=== PATIENT | female | born 1950 | race Caucasian/White ===

== ENCOUNTER → 2017-10-28 | Outpatient (CLI) | payer OTHER ==
[~2017-10-28] MED LIST: ALPR.25 PO; Alph-E-Mixed400 UNIT; CLOP75 PO; EZET10 PO; Prilosec Otc20 MG; Prinivil10 MG PO; TRIHYD5075 PO
[2017-10-28 16:31] LABS: BASOPHILS ABSOLUTE AUTO 0.03 K/mm3 (0.00-0.23); BASOPHILS PERCENT AUTO 0 % (0-2); EOSINOPHILS ABSOLUTE AUTO 0.19 K/mm3 (0.00-0.68); EOSINOPHILS PERCENT AUTO 2 % (0-6); Hematocrit 37.3 % (33.0-51.0); Hemoglobin 12.6 g/dL (11.5-16.0); IMMATURE GRAN ABSOLUTE AUTO 0.04 K/mm3 (0.00-0.10); IMMATURE GRAN PERCENT AUTO 1 % (0-1); LYMPHOCYTES ABSOLUTE AUTO 2.32 K/mm3 (0.84-5.20); LYMPHOCYTES PERCENT AUTO 30 % (21-46); MONOCYTES ABSOLUTE AUTO 0.66 K/mm3 (0.16-1.47); MONOCYTES PERCENT AUTO 8 % (4-13); Mean Corpuscular HGB 29.2 pg (26.0-34.0); Mean Corpuscular HGB Conc 33.8 g/dL (31.5-36.5); Mean Corpuscular Volume 86 fL (80-100); Mean Platelet Volume 10.5 fL (9.1-12.4); NEUTROPHILS ABSOLUTE AUTO 4.59 K/mm3 (1.96-9.15); NEUTROPHILS PERCENT AUTO 59 % (41-73); Platelet Count 312 K/mm3 (150-400); RDW Coefficient Variation 11.4 % (11.7-14.2); RDW Standard Deviation 36.1 fL (35.1-46.3); Red Blood Cell Count 4.32 M/mm3 (3.80-5.20); White Blood Cell Count 7.83 K/mm3 (4.00-11.30)
[2017-10-28 16:51] LABS: Albumin, Blood 3.8 g/dL (3.4-5.0); Albumin/Globulin Ratio 1.2 (0.8-1.8); Bilirubin, Total 0.4 mg/dL (0.1-1.0); Bun/Creatinine Ratio 12.8 (12.0-20.0); Calcium, Blood 9.2 mg/dL (8.5-10.1); Creatinine, Blood 1.33 mg/dL (0.40-1.00); Globulin, Blood 3.3 g/dL (2.2-4.0); Potassium, Blood 3.9 mmol/L (3.5-5.5); Total Protein, Blood 7.1 g/dL (6.4-8.2)
== END ==
LOC: LAB 16:22 → LAB SHORT 16:22
PROVIDERS: Physician Assistant
DX: L30.9 Dermatitis, unspecified (principal); R21 Rash and other nonspecific skin eruption
CPT/HCPCS: 80053; 85025

== ENCOUNTER 2019-03-13 17:40 | Inpatient (IN) | payer OTHER ==
[~2019-03-13] VITALS: Ht 162.6 cm; Wt 94.8 kg
[2019-03-13 18:39] LABS: Source, Urine Urostomy Bag
[2019-03-13 18:49] LABS: Appearance, Urine Clear (Clear); Bilirubin, Urine Neg (Neg); Blood, Urine Neg (Neg); Color, Urine Yellow (P-Yellow); Glucose Qualitative, Urine Neg (Neg); Ketones, Urine Neg (Neg); Leukocyte Esterase, Urine 1+ (Neg); Nitrite, Urine Neg (Neg); Protein, Urine Neg (Neg); Specific Gravity, Urine 1.005 (1.003-1.022); Urobilinogen, Urine NORM (Normal)
[2019-03-13 18:51] LABS: BASOPHILS ABSOLUTE AUTO 0.03 K/mm3 (0.00-0.23); BASOPHILS PERCENT AUTO 0 % (0-2); EOSINOPHILS ABSOLUTE AUTO 0.02 K/mm3 (0.00-0.68); EOSINOPHILS PERCENT AUTO 0 % (0-6); Hematocrit 37.4 % (33.0-51.0); Hemoglobin 12.6 g/dL (11.5-16.0); IMMATURE GRAN ABSOLUTE AUTO 0.12 K/mm3 (0.00-0.10); IMMATURE GRAN PERCENT AUTO 1 % (0-1); LYMPHOCYTES ABSOLUTE AUTO 2.14 K/mm3 (0.84-5.20); LYMPHOCYTES PERCENT AUTO 12 % (21-46); MONOCYTES ABSOLUTE AUTO 1.42 K/mm3 (0.16-1.47); MONOCYTES PERCENT AUTO 8 % (4-13); Mean Corpuscular HGB 29.1 pg (26.0-34.0); Mean Corpuscular HGB Conc 33.7 g/dL (31.5-36.5); Mean Corpuscular Volume 86 fL (80-100); Mean Platelet Volume 10.7 fL (9.1-12.4); NEUTROPHILS PERCENT AUTO 79 % (41-73); Platelet Count 306 K/mm3 (150-400); RDW Coefficient Variation 11.8 % (11.7-14.2); RDW Standard Deviation 37.4 fL (35.1-46.3); Red Blood Cell Count 4.33 M/mm3 (3.80-5.20); White Blood Cell Count 17.93 K/mm3 (4.00-11.30)
[2019-03-13 19:01] LABS: Bacteria Few /hpf; Red Blood Cells, Urine 0-2 /hpf (0-2); Squamous Epithelial Cells Few /hpf (Few)
[2019-03-13 19:03] LABS: Albumin, Blood 3.7 g/dL (3.4-5.0); Bilirubin, Total 0.8 mg/dL (0.1-1.0); Bun/Creatinine Ratio 14.4 (12.0-20.0); Calcium, Blood 9.5 mg/dL (8.5-10.1); Creatinine, Blood 1.11 mg/dL (0.40-1.00); Globulin, Blood 3.6 g/dL (2.2-4.0); Potassium, Blood 3.9 mmol/L (3.5-5.5); Total Protein, Blood 7.3 g/dL (6.4-8.2)
[2019-03-13] MEDS ORDERED: ALPR.5 PO (19:49)
[2019-03-13] MEDS ORDERED: Dyazide 37.5-21 EACH PO (19:50)
[2019-03-13] MEDS ORDERED: HYDHCL25 PO (19:51)
[2019-03-13] MEDS ORDERED: ALLO100 PO (21:43)
[2019-03-13] MEDS ORDERED: THERA-D2000 UNIT PO (23:16)
[2019-03-13] MEDS ORDERED: CQ10 PO (23:17)
[2019-03-14 04:58] LABS: BASOPHILS ABSOLUTE AUTO 0.03 K/mm3 (0.00-0.23); BASOPHILS PERCENT AUTO 0 % (0-2); EOSINOPHILS ABSOLUTE AUTO 0.04 K/mm3 (0.00-0.68); EOSINOPHILS PERCENT AUTO 0 % (0-6); Hematocrit 32.2 % (33.0-51.0); Hemoglobin 10.8 g/dL (11.5-16.0); IMMATURE GRAN ABSOLUTE AUTO 0.08 K/mm3 (0.00-0.10); IMMATURE GRAN PERCENT AUTO 1 % (0-1); LYMPHOCYTES ABSOLUTE AUTO 2.09 K/mm3 (0.84-5.20); LYMPHOCYTES PERCENT AUTO 14 % (21-46); MONOCYTES ABSOLUTE AUTO 1.25 K/mm3 (0.16-1.47); MONOCYTES PERCENT AUTO 8 % (4-13); Mean Corpuscular HGB 29.3 pg (26.0-34.0); Mean Corpuscular HGB Conc 33.5 g/dL (31.5-36.5); Mean Corpuscular Volume 88 fL (80-100); Mean Platelet Volume 10.6 fL (9.1-12.4); NEUTROPHILS ABSOLUTE AUTO 11.61 K/mm3 (1.96-9.15); NEUTROPHILS PERCENT AUTO 77 % (41-73); Platelet Count 255 K/mm3 (150-400); RDW Coefficient Variation 11.8 % (11.7-14.2); Red Blood Cell Count 3.68 M/mm3 (3.80-5.20)
--- NOTE | 2019-03-14 06:48 | NUR ---
SHIFT SUMMARY PT WAS A NEW ADMIT DURING THE NIGHT, ARRIVING ON THE FLOOR AT 2247. SHE IS A&O X 4, AND A SBA/INDEPENDENT UP IN THE ROOM. PT WAS ADMITTED FOR SEPSIS R/T DIVERTICULITIS. SHE REPORTED LOWER ABD PAIN AND TENDERNESS THAT WAS WORSE WITH MOVEMENT AND WALKING. SHE WAS MEDICATED X1 WITH A OT HYDROCODONE PER PAPITO SHOOK, AND X1 WITH A OT TRAMADOL PER DR SANDERS. PT RECEIVED I BAG OF NS @ 150 ML/HR. NO COMPLAINTS OF NAUSEA OR SOB. VITALS STABLE. NO ACUTE CHANGES IN PT CONDITION NOTED. WILL CONTINUE TO MONITOR AND TREAT PER EMAR UNTIL HAND OFF TO DAY SHIFT RN.
--- NOTE | 2019-03-14 18:36 | NUR ---
SUMMARY PT IS A/O X4, PLEASANT/COOPERATIVE AFFECT. UP IND TO BR, AMBULATE IN ROOM. DX DIVERTICULITIS, URINE + FOR STREP, SHE IS GETTING SCHEDULED IV ANTIBX. WBC WNL. SHE STATE ABD TENDERNESS/PAIN, SHE HAS TAKEN TYLENOL & NORCO FOR PAIN RELIEF. AFTER NORCO TODAY SHE STATE ITCHING, DR LINDQUIST NOTIFIED, STATE R/T PAIN MED, ORDER BENADRYL. PT STATE ITCHING RELIEF. SHE STATE NO NAUSEA OR DIARRHEA. VSS, NO FEVER TODAY.
--- NOTE | 2019-03-15 06:04 | NUR ---
SHIFT SUMMARY PT IS A 68 Y/O FEMALE, ADMITTED FOR SEPSIS R/T DIVERTICULITIS. SHE IS A&O X 4, AND SBA/INDEPENDENT UP IN THE ROOM. 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 NO COMPLAINTS OF SOB. PT WAS MEDICATED X2 WITH PRN ZOFRAN AND X1 WITH PRN NORCO FOR ABD DISCOMFORT. VITAL SIGNS STABLE. PT SLEPT WELL OFF AND ON DURING THE NIGHT. NO OTHER ACUTE CHANGES IN PT CONDITION NOTED. WILL CONTINUE TO MONITOR AND TREAT PER EMAR UNTIL HAND OFF TO DAY SHIFT RN.
--- NOTE | 2019-03-15 15:38 | NUR ---
SUMMARY PT HAS BEEN TOLERATING FL'S HOWEVER SHE CONTINUES TO STATE CONCERNS R/T DAIRY ALLERGIES & ITEMS ON TRAY, DIETICAIN IN TO ADDRESS CONCERNS & REVIEW. DR LINDQUIST INCREASE DIET TO SOFT. IV ANTIBX CONTINUE. PT STATE CONTINUING MILD ABD PAIN/DISCOMFORT, PRN TYLENOL GIVEN FOR RELIEF. SHE STATE MILD NAUSEA THIS AM HOWEVER HAS RESOLVED. SHE TOOK A SHOWER TODAY, AMBULATED IN [place]. VSS/AFEBRILE.
[2019-03-16 04:59] LABS: BASOPHILS ABSOLUTE AUTO 0.04 K/mm3 (0.00-0.23); BASOPHILS PERCENT AUTO 1 % (0-2); EOSINOPHILS ABSOLUTE AUTO 0.21 K/mm3 (0.00-0.68); EOSINOPHILS PERCENT AUTO 3 % (0-6); Hematocrit 39.6 % (33.0-51.0); Hemoglobin 13.7 g/dL (11.5-16.0); IMMATURE GRAN ABSOLUTE AUTO 0.06 K/mm3 (0.00-0.10); IMMATURE GRAN PERCENT AUTO 1 % (0-1); LYMPHOCYTES PERCENT AUTO 28 % (21-46); MONOCYTES ABSOLUTE AUTO 0.71 K/mm3 (0.16-1.47); MONOCYTES PERCENT AUTO 9 % (4-13); Mean Corpuscular HGB 29.2 pg (26.0-34.0); Mean Corpuscular HGB Conc 34.6 g/dL (31.5-36.5); Mean Corpuscular Volume 84 fL (80-100); NEUTROPHILS ABSOLUTE AUTO 4.47 K/mm3 (1.96-9.15); NEUTROPHILS PERCENT AUTO 59 % (41-73); Platelet Count 209 K/mm3 (150-400); RDW Coefficient Variation 11.8 % (11.7-14.2); RDW Standard Deviation 35.4 fL (35.1-46.3); Red Blood Cell Count 4.69 M/mm3 (3.80-5.20); White Blood Cell Count 7.59 K/mm3 (4.00-11.30)
--- NOTE | 2019-03-16 07:25 | NUR ---
NOC SHIFT SUMMARY PT IS PLEASANT AND COOPERATIVE WITH CARE. COMPLAINED OF MILD STOMACH DISCOMFORT LAST NIGHT. VSS. APPEARS IN NO ACUTE DISTRESS. NO CHANGES NOTED THIS NIGHT. REPORT TO ONCOMING RN.
--- NOTE | 2019-03-16 17:40 | NUR ---
SHIFT SUMMARY. A&OX4, INDEPENDENT IN ROOM. BOWEL CARE GIVEN THIS AM, PT REPORTS THAT SHE HAD 3 SMALL AND ONE LARGE FORMED BM'S THIS AFTERNOON. PT REPORTED SMALL AMOUNT OF BLOOD ON TOILET PAPER WITH WIPING ALTHOUGH NO BLOOD OBSERVED IN TOILET OR STOOL. PT REPORTED LAST PRIOR BM WAS MONDAY. PT REPORTS MILD ABDOMINAL TENDERNESS THAT HAS IMPROVED SINCE ADMIT, DENIED THE NEED FOR PAIN MEDICATIONS. NO SOB OR N/V. FAIR MEAL INTAKE. AT BEDSIDE MOST OF THE SHIFT. NO NEW CHANGES OR CONCERNS.
--- NOTE | 2019-03-17 04:23 | NUR ---
NOC SHIFT SUMMARY PT HAS BEEN PLEASANT AND COOPERATIVE WITH CARE. AAOX4 RESP EVEN AND UNLABORED. FELL TO SLEEP SHORTLY AFTER EVENING MED PASS AND HAS SLEPT MUCH OF THE NIGHT SINCE. COMPLAINED OF A SMALL AMOUNT OF LOWER ABD PAIN EARLY IN SHIFT, TREATED WITH TYLENOL. PT JUST HAD BLOOD DRAWN AT TIME OF WRITING THIS NOTE AND APPEARS IN NO ACUTE DISTRESS. WILL CONTINUE TO MONITOR.
[2019-03-17 05:47] LABS: Anion Gap 6 mmol/L (6-16); Blood Urea Nitrogen 20 mg/dL (8-24); Bun/Creatinine Ratio 15.5 (12.0-20.0); CO2, Blood 28 mmol/L (21-32); Chloride, Blood 99 mmol/L (98-108); Creatinine, Blood 1.29 mg/dL (0.40-1.00); Glomerular Filtration Rate 44 (60-); Glucose, Blood 104 mg/dL (70-99); Sodium, Blood 133 mmol/L (136-145)
[2019-03-17] MEDS ORDERED: CIPR500 PO (09:16)
[2019-03-17] MEDS ORDERED: DOCU100 PO (09:16)
[2019-03-17] MEDS ORDERED: Vsl#3 Capsule1 EACH PO (09:17)
[2019-03-17] MEDS ORDERED: MIRALAX119 GM PO (09:17)
[2019-03-17] MEDS ORDERED: METR500 PO (09:17)
--- NOTE | 2019-03-17 11:09 | NUR ---
1102 PT DISCHARGED HOME VIA PERSONAL VEHICLE ACCOMPANIED AND DRIVEN BY . ESCORTED TO FACILTIY ENTRANCE VIA W/C BY [employer]ORE [employer]IATE. D/C PAPERWORK REVIEWED WITH PT AND COPY PROVIDED. NEW RX FAXED TO [facility] PER PT REQUEST. NO NEW CHANGES OR CONCERNS.
== END 2019-03-17 11:02 | disposition home or self-care (01) | DRG 872 ==
LOC: ER 17:40 → MEDS 22:21 → ENPENDDIS 03-17 09:00 → MEDS 03-17 11:02
PROVIDERS: Internal Medicine; Physician Assistant; ADMIT Hospitalist
DX: A41.9 Sepsis, unspecified organism (principal); K57.32 Diverticulitis of large intestine without perforation or abscess without bleeding; K59.00 Constipation, unspecified; I12.9 Hypertensive chronic kidney disease with stage 1 through stage 4 chronic kidney disease, or unspecified chronic kidney disease; N18.3 Chronic kidney disease, stage 3 (moderate); I73.9 Peripheral vascular disease, unspecified; F41.0 Panic disorder [episodic paroxysmal anxiety]; B95.1 Streptococcus, group B, as the cause of diseases classified elsewhere; Z91.011 Allergy to milk products
CPT/HCPCS: 36415; 74176; 80053; 80069; 81001; 83690; 84484; 85025; 87086; 87147; 96365; 96367; 96375; 99285-25; A9270; A9270-GY; J0744; J1650; J1956; J2405; J3010; J7030; J7050; Q0163

== ENCOUNTER 2019-12-28 11:30 | Emergency (ER) | payer OTHER ==
[~2019-12-28] VITALS: Ht 162.6 cm; Wt 86.2 kg
[~2019-12-28 11:30] MED LIST changes: +ALLO100 PO; +ALPR.5 PO; +CIPR500 PO; +CQ10 PO; +DOCU100 PO; +Dyazide 37.5-21 EACH PO; +HYDHCL25 PO; +METR500 PO; +MIRALAX119 GM PO; +THERA-D2000 UNIT PO; +Vsl#3 Capsule1 EACH PO
[2019-12-28 12:07] LABS: BASOPHILS ABSOLUTE AUTO 0.04 K/mm3 (0.00-0.23); BASOPHILS PERCENT AUTO 1 % (0-2); EOSINOPHILS ABSOLUTE AUTO 0.16 K/mm3 (0.00-0.68); EOSINOPHILS PERCENT AUTO 2 % (0-6); Hemoglobin 13.5 g/dL (11.5-16.0); IMMATURE GRAN ABSOLUTE AUTO 0.04 K/mm3 (0.00-0.10); IMMATURE GRAN PERCENT AUTO 1 % (0-1); LYMPHOCYTES ABSOLUTE AUTO 2.74 K/mm3 (0.84-5.20); LYMPHOCYTES PERCENT AUTO 32 % (21-46); MONOCYTES ABSOLUTE AUTO 0.63 K/mm3 (0.16-1.47); MONOCYTES PERCENT AUTO 7 % (4-13); Mean Corpuscular HGB 28.8 pg (26.0-34.0); Mean Corpuscular HGB Conc 32.9 g/dL (31.5-36.5); Mean Corpuscular Volume 88 fL (80-100); Mean Platelet Volume 10.5 fL (9.1-12.4); NEUTROPHILS ABSOLUTE AUTO 5.03 K/mm3 (1.96-9.15); NEUTROPHILS PERCENT AUTO 58 % (41-73); Platelet Count 288 K/mm3 (150-400); RDW Coefficient Variation 11.6 % (11.7-14.2); RDW Standard Deviation 37.5 fL (35.1-46.3); Red Blood Cell Count 4.68 M/mm3 (3.80-5.20); White Blood Cell Count 8.64 K/mm3 (4.00-11.30)
[2019-12-28 12:30] LABS: Alanine Aminotransfer (ALT/SGP 22 U/L (12-78); Albumin, Blood 3.8 g/dL (3.4-5.0); Albumin/Globulin Ratio 1.2 (0.8-1.8); Alk Phos 130 U/L (50-136); Anion Gap 7 mmol/L (6-16); Aspartate Aminotrans (AST/SGOT <3 U/L (12-37); Bilirubin, Total 0.5 mg/dL (0.1-1.0); Blood Urea Nitrogen 22 mg/dL (8-24); Bun/Creatinine Ratio 16.7 (12.0-20.0); CO2, Blood 27 mmol/L (21-32); Calcium, Blood 9.6 mg/dL (8.5-10.1); Chloride, Blood 107 mmol/L (98-108); Creatinine, Blood 1.32 mg/dL (0.40-1.00); Globulin, Blood 3.3 g/dL (2.2-4.0); Glomerular Filtration Rate 42 (60-); Glucose, Blood 125 mg/dL (70-99); Sodium, Blood 141 mmol/L (136-145); Total Protein, Blood 7.1 g/dL (6.4-8.2)
== END 2019-12-28 14:43 | disposition home or self-care (01) ==
LOC: ER 11:30
PROVIDERS: Physician Assistant
DX: I10 Essential (primary) hypertension (principal); Z88.0 Allergy status to penicillin; Z87.891 Personal history of nicotine dependence; Z79.02 Long term (current) use of antithrombotics/antiplatelets; Z79.899 Other long term (current) drug therapy
CPT/HCPCS: 36415; 70450; 80053; 85025; 96374; 99284-25

== ENCOUNTER → 2023-02-16 | Outpatient (CLI) | payer OTHER | END | disposition home or self-care (01) | LOC: LAB 11:52 → LAB SHORT 11:52 | DX: L57.0 Actinic keratosis (principal) | CPT/HCPCS: 88305 ==